=== PATIENT | female | born 1980 | race Caucasian/White ===

== ENCOUNTER 2016-05-25 05:23 | Emergency (ER) | payer MEDICARE, BC ==
[~2016-05-25] VITALS: Ht 162.6 cm; Wt 89.8 kg
[2016-05-25 05:26] VITALS: Ht 162.6 cm; Wt 89.8 kg
[2016-05-25] MEDS ORDERED: KETOROLAC 30 MG INJ IV STA (06:41)
[2016-05-25] MEDS ORDERED: METOCLOPRAMIDE 10 MG INJ IV STA (06:41)
[2016-05-25] MEDS ORDERED: DIPHENHYDRAMINE 50 MG INJ IV STA (06:41)
[2016-05-25] MEDS ORDERED: SOD CHLORIDE 0.9% 1,000 ML IV STA (06:41)
[2016-05-25 07:24] LABS: URINE BLOOD (Dip) POC Negative (NEGATIVE)
[2016-05-25] MEDS ORDERED: FIORICET PO (07:53)
[2016-05-25 08:20] VITALS: BP 123/79; PULSE 78; RESP 18; TEMP 98.2
--- NOTE | 2016-05-25 08:48 | ERD ---
DATE OF SERVICE: HISTORY OF PRESENT ILLNESS: The patient is a 36-year-old female complaining of a headache for the day. She states she has a frontal headache, it comes and goes. She states she also has some co ngestion. She is unsure if that causes the pain. She has had no vomiting, no fevers, no head traum a. Denies any visual changes. PAST MEDICAL HISTORY: Denies any other medical problems. ALLERGIES: DENIES ALLERGIES TO MEDICATIONS. PAST SURGICAL HISTORY: Cholecystectomy. SOCIAL HISTORY: Smokes half a pack a day. REVIEW OF SYSTEMS: A 12-point review of systems was done. Refer to HPI for positives, all other sy stems negative. PHYSICAL EXAMINATION: VITAL SIGNS: Temperature is 97.8, pulse 96, blood pressure is 132/65, respiratory rate 20, O2 satur ation 99% on room air. Pain intensity is 7/10. GENERAL: The patient is well-appearing, well-nourished, no acute distress. HEART: Regular rate and rhythm. No murmurs, clicks, rubs or gallops. No S3 or S4. CHEST: Clear to auscultation bilaterally. There are no rales, wheezes or rhonchi. HEENT: Atraumatic. Conjunctivae are pink. Pupils equal, round, and reactive to light. There is no s cleral icterus. Tympanic membranes clear bilaterally. Oropharynx clear. No nystagmus or photophobia . SKIN: There is no apparent rash or petechia. The skin is warm and dry. BACK: No midline or flank tenderness. NECK: C-spine is soft and supple. There is no meningismus. There is no cervical lymphadenopathy. No JVD. No bruits. No goiter. NEUROLOGIC: Alert and oriented. Cranial nerves 2-12 intact. Motor strength in all 4 extremities wit h 5/5 strength. Sensation grossly intact. Normal speech and gait. Babinski negative. DTR 2+ through out. EMERGENCY ROOM COURSE: The patient had a urine checked in the ER that showed trace leukocytes, nega tive nitrites, negative protein, negative glucose, negative ketones. The patient also was given a l iter of normal saline and Toradol, Benadryl, and Reglan. Upon reevaluation, the patient's symptoms had dramatically improved, and the patient was sleeping and no longer had a headache. DIAGNOSIS: Headache. MEDICAL DECISION MAKING: I have low suspicion for intracranial hemorrhage or mass effect. Low susp icion for neuro deficit. The patient's exam is not concerning. The patient is well appearing on re evaluation. I did not feel there was indication for imaging as the patient likely does not have int racranial process at this time. DISCHARGE: The patient is discharged stable. The patient is given a prescription for Fioricet and told to follow up with primary care within 1 to 2 days for reevaluation. The patient was told if sy mptoms progress or worsen to return to the ER. All other questions answered at time of discharge. Discharge summary given at the time of departure. The patient understood and complied with plan. Dictated By: TAMIKO DAVIS PA for EVE BRAUN/RYAN Conf#: [id number] DID#: [id number]
== END 2016-05-25 08:20 | disposition home or self-care (01) ==
LOC: FTE 05:23
DX: R51 Headache (principal); F17.210 Nicotine dependence, cigarettes, uncomplicated
CPT/HCPCS: 81003; 96361; 96374; 96375; 99284; J1200; J1885; J2765; J7030